=== PATIENT | male | born 1955 | race Caucasian/White ===

== ENCOUNTER 2021-09-11 10:16 | Emergency (ER) | payer BC ==
[~2021-09-11] VITALS: Ht 172.7 cm; Wt 74.4 kg
[2021-09-11 10:26] VITALS: BP_SYST 114
[2021-09-11] MEDS ORDERED: ALBUMIN HUMAN 25% 50 ML IV ONE (11:45)
[2021-09-11 13:11] VITALS: BP_SYST 112
== END 2021-09-11 13:00 | disposition home or self-care (01) ==
LOC: SED 10:16
DX: R18.8 Other ascites (principal); E11.9 Type 2 diabetes mellitus without complications; Z91.018 Allergy to other foods; Z79.899 Other long term (current) drug therapy; Z20.822 Contact with and (suspected) exposure to COVID-19
CPT/HCPCS: 36415; 49083; 82962; 88108; 96365; 99284; 99285; P9046